=== PATIENT | male | born 1980 ===

== ENCOUNTER 2020-05-23 08:07 | Day surgery (SDC) | payer OTHER ==
[~2020-05-23 08:07] MED LIST: PROPOFOL INJ 200 MG/20 ML VIAL IV ONE
--- NOTE | 2020-05-23 11:10 | Operative Report ---
Operative Report DATE OF SURGERY: 05/23/20 Operative Report: The risk, benefits and alternatives of the procedure including the risks of bleeding, perforation requiring surgery have been explained to the patient in detail and informed consent has been obtained. Patient is taken back to the endoscopy suite and placed in the left, lateral decubital position. Timeout was called. Propofol medication is administered. Rectal examination is done which did not reveal any masses, tears or fissures. An Olympus videoscope was introduced into the patient's rectum. Scope was then carefully advanced all the way to the cecum. Cecum was identified by the usual anatomical landmarks including the ileocecal valve as well as the appendiceal office. Photodocumentation is obtained. The scope was then sequentially pulled back via the various segments of the colon including the ascending colon, hepatic flexure, transverse colon, splenic flexure, descending colon and finally into the rectosigmoid portions of the colon. Retroflexion maneuver is performed. PREOPERATIVE DIAGNOSIS: Change in bowel habits POSTOPERATIVE DIAGNOSIS: Right side colon biopsy status post biopsy. Internal hemorrhoids. Rectal polyp removed via snare polypectomy and retrieved OPERATION: Colonoscopy with snare polypectomy. Colonoscopy with biopsy SURGEON: RENNY SHAIKH ANESTHESIA: LMAC TISSUE REMOVED OR ALTERED: As noted above. COMPLICATIONS: None. ESTIMATED BLOOD LOSS: None. INTRAOPERATIVE FINDINGS: As noted above. PROCEDURE: Patient tolerated the procedure well. No immediate postprocedure complications are noted. Patient is discharged in good condition. Discharge date 05/23/2020. Discharge diet : Regular. Discharge activity: Regular. 2 to 3-week follow-up to discuss findings. 5-year surveillance colonoscopy. Wait on the pathology.
[2020-05-23] MEDS ORDERED: SIMETHICONE 80 MG TAB.CHEW ONE (11:13)
[2020-05-23] MEDS ORDERED: PROPOFOL INJ 200 MG/20 ML VIAL IV ONE (11:18)
[2020-05-23 12:35] VITALS: BP 147/68
== END 2020-05-23 12:15 | disposition home or self-care (01) ==
LOC: END 08:07
PROVIDERS: ATTEND Internal Medicine Gastroenterology
DX: K64.8 Other hemorrhoids (principal); D12.8 Benign neoplasm of rectum; K52.9 Noninfective gastroenteritis and colitis, unspecified; R19.4 Change in bowel habit; R10.9 Unspecified abdominal pain; Z03.818 Encounter for observation for suspected exposure to other biological agents ruled out; G47.33 Obstructive sleep apnea (adult) (pediatric); F17.290 Nicotine dependence, other tobacco product, uncomplicated; F17.210 Nicotine dependence, cigarettes, uncomplicated; Z90.49 Acquired absence of other specified parts of digestive tract
CPT/HCPCS: 45380; 45385; 87635; 88305 ×2; J2704; C9803; 811